=== PATIENT | male | born 1990 | race Two or more races ===

== ENCOUNTER 2024-10-26 13:56 | Emergency (ER) | payer BC ==
[~2024-10-26] VITALS: Ht 172.7 cm; Wt 67.1 kg
[2024-10-26] MEDS ORDERED: DISCOVISC DISP S1 ML IO (14:29)
[2024-10-26] MEDS ORDERED: CEFTRIAXONE SODIUM 1,000 MG VIAL IM ONE (15:15)
[2024-10-26] MEDS ORDERED: CEFTRIAXONE SODIUM 1,000 MG VIAL ONE (15:20)
== END 2024-10-26 15:41 | disposition home or self-care (01) ==
LOC: ER 13:56
DX: S80.862A Insect bite (nonvenomous), left lower leg, initial encounter (principal); W57.XXXA Bitten or stung by nonvenomous insect and other nonvenomous arthropods, initial encounter; Y93.89 Activity, other specified; Y92.89 Other specified places as the place of occurrence of the external cause; Y99.9 Unspecified external cause status